=== PATIENT | male | born 1995 | race Caucasian/White ===

== ENCOUNTER 2016-07-01 07:18 | Emergency (ER) | payer OTHER ==
[2016-07-01 07:32] VITALS: BMI 22.4
[2016-07-01] MEDS ORDERED: HYDROmorphone 1 MG INJECTION IV ONE (07:55)
[2016-07-01] MEDS ORDERED: NS 1,000 ML IV ONE ×2 (07:55→07:58)
[2016-07-01] MEDS ORDERED: ONDANSETRON HCL 4 MG/2 ML VIAL IV ONE (07:55)
--- NOTE | 2016-07-01 07:58 | EDPRACDOC ---
- General Information Chief Complaint: Nausea,Vomiting,Diarrhea Stated Complaint: DIARRHEA/ VOMITING Time Seen by Provider: 07/01/16 07:32 Information Source: Patient Mode Of Arrival: Car Home Medications: Home Medications Methylphenidate HCl [Concerta] 54 mg PO DAILY 11/27/12 Ciprofloxacin HCl [Cipro] 500 mg PO BID #20 tab 07/01/16 Ondansetron [Zofran Odt] 4 mg PO Q6H PRN #20 tab.rapdis 07/01/16 Oxycodone HCl/Acetaminophen [Percocet 5-325 mg Tablet] 1 each PO Q4 #20 tablet 07/01/16 Promethazine [Phenergan] 25 mg PO Q8H PRN #30 tab 07/01/16 Allergies/Adverse Reactions: Allergies Allergy/AdvReac Type Severity Reaction Status Date / Time No Known Allergies Allergy Verified 07/01/16 07:32 - History of Present Illness Onset: 1999 HPI: MULTIPLE FAMILY MEMBERS WITH NAUSEA AND VOMITING. NO DIARRHEA. NO FEVER. STARTED YESTERDAY. CURRENTLY ORTHOSTATIC. MILD ABDOMINAL PAIN LUQ Symptoms Occured: Reports: Spontaneous Duration: Reports: Since Onset Emesis: Reports: Bilious, Food Particles Pain Quality: Reports: Aching Pain Severity: Mild Pain Location: Reports: LUQ Relevant History of: Denies: Abdominal Surgery Associated Signs and Symptoms: Reports: Nausea, Vomiting Oral Intake: Decreased Urinary Output: Normal ED Past Medical History - History Reviewed Yes Nurses notes reviewed and agree except as marked Travel Outside of [place] in the Last 3 Months?: No - Patient Medical History Surgical History: Reports: No Significant History - Social Medical History ETOH: None Substance Abuse: None Lives With: Family Lives In: Home EDM Review of Systems - Review of Systems ROS Negative Except as Marked: Yes All systems reviewed and were negative except as marked Constitutional: Fatigue. negative: Chills, Fever, Loss of Appetite, Weakness Eyes: No Symptoms Reported. negative: Redness, Blurred Vision, Double Vision, Discharge, Pain, Light Sensitive, Photophobia Ears: No Symptoms Reported. negative: Pain, Hearing Loss, Drainage, Ear Pulling Throat: No Symptoms Reported. negative: Pain, Swelling Nose: No Symptoms Reported. negative: Congestion, Bleeding, Discharge, Injection, Swelling, Deformity, Ecchymosis, Tender, Abrasion, Laceration Mouth: No Symptoms Reported. negative: Pain, Drooling Respiratory: No Symptoms Reported. negative: Cough, Brassy Cough, Barky Cough, Shortness of Breath, Wheezing, Hemoptysis Cardiovascular: No Symptoms Reported. negative: Chest Pain, Palpitations, Syncope, Edema, Orthopnea, PND, Skin Mottling, Cyanosis Gastrointestinal: Nausea, Pain, Vomiting. negative: Constipation, Diarrhea, Formula Intolerance, Melena Genitourinary: No Symptoms Reported. negative: Dysuria, Hematuria, Frequency, Discharge, Bleeding, Testicular Pain, Neurological: No Symptoms Reported. negative: Headache, Dizziness, Seizure, Numbness, Weakness, Speech Difficulty, Gait Difficulty Musculoskeletal: No Symptoms Reported. negative: Neck, Chestwall, Ribs, Back, Shoulder, Arm, Elbow, Forearm, Wrist, Hand, Pelvis, Hip, Femur, Knee, Leg, Ankle , Foot Integumentary: No Symptoms Reported. negative: Itching, Rash, Bruising, Wound Allergic/Immunologic: No Symptoms Reported. negative: Hives, Itching Hematologic: No Symptoms Reported. negative: Lymphadenopathy, Easy Bruising, Easy Bleeding Endocrine: No Symptoms Reported. negative: Weight Gain, Weight Loss Psychiatric: No Symptoms Reported. negative: Anxiety, Depression, Hallucinations, Insomnia, Suicidal - Physical Exam Constitutional: Alert (Awake), Distress (MILD) Oriented to: Time, Person, Place Last recorded Vital Signs: Last Vital Signs Temp 97.7 F 07/01/16 07:27 Pulse 105 07/01/16 07:27 Resp 18 07/01/16 07:27 BP 109/75 07/01/16 07:27 Pulse Ox 98 07/01/16 07:27 Oxygen Pulse Oxygen Saturation 98 O2 Device Room Air Oxygen Flow Rate Fraction of Inspired Oxygen ( FIO2) - HEENT Head: Normal ( normocephalic) Eye Exam: Normal (PERRL, EOMI, Sclera white) Oropharynx: Normal (Pharynx:Moist without exudate,Gums-no swelling) Tympanic Membrane: Normal ENT EAC: Normal TMJ: Normal Nose: No Symptoms Reported (septum midline) Neck: Normal (FROM, trachea at midline) - Respiratory/Cardiovascular Respiratory: Normal - CTA (BBS clear to auscultation without adventitious sounds ) Cardiovascular: Tachycardia - GI Auscultation: Normal (NABS) Palpation: Normal (Soft,No rebound or guarding, non distended) Tenderness: Non tender Rsos's Sign: Negative - Musculoskeletal Back: Normal (Non-Tender) Extremities: Normal (Normal tone, Pulses 2+ No cyanosis or edema, FROM) - Integumentary Skin: Normal, Warm, Dry Lymphatics: Normal (no adenopathy) - Neurologic Memory Impaired: Normal Motor Function: Normal (Normal tone, Pulses 2+ No cyanosis or edema, FROM) Cranial Nerve: Normal (CN II-X11 intact sensation, strength 5/5) Cerebellar: Normal Mood Description: Normal Perception: Normal - Results 07/01/16 07:56 07/01/16 07:56 Decision Time to Discharge: 11:08 - Departure Yes I personally saw and evaluated the patient. Disposition: Home Condition: Good Final Diagnosis: Gastroenteritis, Nausea and vomiting Instructions: Acute Nausea and Vomiting (ED) Education/Counseling Given To: Patient Education/Counseling Given Regarding: Diagnosis, Treatment, Prognosis, Follow Up Prescriptions: Ciprofloxacin HCl [Cipro] 500 mg PO BID #20 tab Ondansetron [Zofran Odt] 4 mg PO Q6H PRN #20 tab.rapdis PRN Reason: Nausea/Vomiting Oxycodone HCl/Acetaminophen [Percocet 5-325 mg Tablet] 1 each PO Q4 #20 tablet Promethazine [Phenergan] 25 mg PO Q8H PRN #30 tab PRN Reason: Nausea/Vomiting
[2016-07-01 08:21] LABS: BLOOD UREA NITROGEN 18 MG/DL (9-20); CALCIUM 10.4 MG/DL (8.4-10.2); CALCULATED OSMOLALITY 278 MOs/Kg (270-290); CHLORIDE 105 mEq/L (98-107); GLUCOSE 157 MG/DL (70-99); MPV 8.7 fL (7.4-10.4); SODIUM LEVEL 142 mEq/L (137-146); TOTAL PROTEIN 8.7 G/DL (6.3-8.2)
--- NOTE | 2016-07-01 09:09 | DIRPT ---
CLINICAL DATA: Nausea and vomiting. Left upper quadrant abdominal pain. EXAM: DG ABDOMEN ACUTE W/ 1V CHEST COMPARISON: None. FINDINGS: There is no evidence of pulmonary edema, consolidation, pneumothorax, nodule or pleural fluid. The heart size is normal. Abdominal films show a normal bowel gas pattern without evidence of obstruction or ileus. No free air is identified on an upright film. No abnormal calcifications or soft tissue abnormalities seen. Visualized bony structures are within normal limits. IMPRESSION: Normal acute abdominal series. Electronically Signed By: Lawrence Niño M.D. On: 07/01/2016 09:07
[2016-07-01 09:10] LABS: SEG NEUTROPHIL 75 % (45-76)
[2016-07-01] MEDS ORDERED: Pharmacy Review for Metformin - IV Contrast Given SCH (10:00)
--- NOTE | 2016-07-01 11:02 | DIRPT ---
CLINICAL DATA: 20-year-old male with acute abdominal pain with nausea and vomiting for 1 day. Initial encounter. EXAM: CT ABDOMEN AND PELVIS WITH CONTRAST TECHNIQUE: Multidetector CT imaging of the abdomen and pelvis was performed using the standard protocol following bolus administration of intravenous contrast. CONTRAST: 100 cc intravenous Isovue 370 COMPARISON: 07/01/2016 radiographs FINDINGS: Lower chest: Unremarkable Hepatobiliary: The liver and gallbladder are unremarkable. There is no evidence of biliary dilatation. Pancreas: Unremarkable Spleen: Unremarkable Adrenals/Urinary Tract: The kidneys, adrenal glands and bladder are unremarkable except for small probable left renal cyst. Stomach/Bowel: Mild circumferential wall thickening of multiple small bowel loops noted and compatible with enteritis. There is no evidence of bowel obstruction. There is no evidence of appendicitis. Vascular/Lymphatic: Unremarkable. No enlarged lymph nodes or abdominal aortic aneurysm. Reproductive: Unremarkable Other: No free fluid, abscess or pneumoperitoneum. A moderate right inguinal hernia containing fat is noted. Musculoskeletal: No acute or suspicious abnormalities. IMPRESSION: Mild circumferential wall thickening of multiple small bowel loops compatible with enteritis. No evidence of bowel obstruction, pneumoperitoneum or abscess. Moderate right inguinal hernia containing fat. Electronically Signed By: Albin Lora M.D. On: 07/01/2016 10:59
[2016-07-01] MEDS ORDERED: CIPROFLOXACIN HCL 500 MG TAB PO ONE (11:10)
[2016-07-01 11:27] VITALS: BP 139/74; PULSE 88; TEMP 98.3
== END 2016-07-01 11:27 | disposition home or self-care (01) ==
LOC: ED 07:18
DX: K52.9 Noninfective gastroenteritis and colitis, unspecified (principal)
CPT/HCPCS: 36415; 74022; 74177; 80053; 83690; 85007; 85027; 87804; 96361; 96374; 96375; 99284; A9698; J1170; J2405; J3490